=== PATIENT | female | born 1955 | race Caucasian/White ===

== ENCOUNTER → 2017-01-16 | Outpatient (CLI) | payer OTHER ==
[~2017-01-16] MED LIST: ATOR20TA PO; CINNAMON PO; CYAN1TAB29 PO; LACT1CAP37 PO; METO25TA91 PO; MULT-516 PO; NAPR500T3 PO; OXYC1TAB7 PO; TEMA15CA PO; TURMERIC PO
[2017-01-16 14:22] LABS: HEMATOCRIT 41.7 % (34.6-47.8); HEMOGLOBIN 14.2 g/dL (11.7-16.4); WHITE BLOOD COUNT 5.9 x10^3/uL (3.4-10)
[2017-01-16 15:20] LABS: HIV 1&2 ANTIBODY SCREEN Nonreactive (Nonreactive); HIV-1 p24 ANTIGEN Nonreactive (Nonreactive)
== END | disposition home or self-care (01) ==
LOC: STAR 13:23
PROVIDERS: ATTEND Orthopaedic Surgery
DX: Z01.818 Encounter for other preprocedural examination (principal); M19.011 Primary osteoarthritis, right shoulder
CPT/HCPCS: 36415; 81003; 85025; 86703; 87081; 87899; 93005; G0435

== ENCOUNTER 2017-01-22 09:39 | Inpatient (IN) | payer OTHER ==
[~2017-01-22] VITALS: Ht 165.1 cm; Wt 70.6 kg
[~2017-01-22 09:39] MED LIST changes: +BUPIVACAINE/PF 0.25% ONE; +DEXAMETHASONE 4 MG/ML, 1ML ONE; +FENTANYL PF 100 MCG/2ML ONE; +MIDAZOLAM 1 MG/ML, 2ML ONE; +ONDANSETRON 2MG/ML, 2ML ONE; +ROCURONIUM 10 MG/ML ONE; +SUCCINYLCHOLINE 20 MG/ML, 10ML ONE
[2017-01-22] MEDS ORDERED: LACTATED RINGERS 1,000 ML IV SCH (10:04)
[2017-01-22] MEDS ORDERED: VANCOMYCIN PMX 1GM/200ML 200 ML IV ONE (10:30)
[2017-01-22 10:31] VITALS: BP 128/84
[2017-01-22] MEDS ORDERED: TRANEXAMIC ACID 100 MG/ML, 10ML ONE (11:30)
[2017-01-22] MEDS ORDERED: KETOROLAC 60 MG/2 ML ONE (11:30)
[2017-01-22] MEDS ORDERED: morphine SULFATE/PF 1 MG/ML, 10ML ONE (11:31)
[2017-01-22] MEDS ORDERED: EPINEPHRINE 1 MG/ML, 1ML ONE (11:31)
[2017-01-22] MEDS ORDERED: ROPIvacaine/PF 0.2%, 20 ML ONE (11:31)
[2017-01-22] MEDS ORDERED: BACITRACIN 50,000 UNIT ONE (11:31)
[2017-01-22] MEDS ORDERED: PROPOFOL 10 MG/ML, 20ML ONE (11:57)
[2017-01-22] MEDS ORDERED: PHENYLEPHRINE 10 MG/ML ONE (11:57)
[2017-01-22] MEDS ORDERED: DEXAMETHASONE 4 MG/ML, 1ML ONE (11:57)
[2017-01-22] MEDS ORDERED: HYDROcodone/APAP 7.5-325MG/15ML UDC PO PRN (12:00)
[2017-01-22] MEDS ORDERED: MEPERIDINE/PF 25MG/0.5ML IVPush PRN (12:00)
[2017-01-22] MEDS ORDERED: ONDANSETRON 2MG/ML, 2ML IVPush PRN ×2 (12:00→15:00)
[2017-01-22] MEDS ORDERED: HYDROmorphone 1 MG/ML, 1ML IV PRN (12:00)
[2017-01-22] MEDS ORDERED: FENTANYL PF 100 MCG/2ML IV PRN (12:00)
[2017-01-22] MEDS ORDERED: OXYcodone 5 MG/5 ML ORAL.SOL UDC PO PRN (12:00)
[2017-01-22] MEDS ORDERED: ONDANSETRON 2MG/ML, 2ML ONE ×2 (13:45)
[2017-01-22] MEDS ORDERED: DIPHENHYDRAMINE 50 MG CAPSULE PO PRN (15:00)
[2017-01-22] MEDS ORDERED: LORazepam 2 MG/ML, 1ML IVPush PRN (15:00)
[2017-01-22] MEDS ORDERED: morphine SULFATE 10 MG/ML, 1ML IVPush PRN (15:00)
[2017-01-22] MEDS ORDERED: ZOLPIDEM 5MG TABLET PO PRN (15:00)
[2017-01-22] MEDS ORDERED: ACETAMINOPHEN 325 MG TABLET PO PRN (15:00)
[2017-01-22] MEDS ORDERED: TEMAZEPAM 15 MG CAPSULE PO PRN (16:30)
[2017-01-22] MEDS ORDERED: OXYcodone/APAP 5/325MG TABLET PO PRN (16:30)
[2017-01-22] MEDS ORDERED: METOPROLOL MC SCH (17:00)
[2017-01-22] MEDS: CEFAZOLIN PMX 1GM/50ML 50 ML IVPB SCH (18:47)
[2017-01-22] MEDS: D5%-0.45% NACL 1,000 ML IV SCH ×2 (19:25→19:48)
[2017-01-22 19:58] VITALS: BP 86/48
[2017-01-22] MEDS ORDERED: ATORVASTATIN 20 MG TABLET PO SCH (21:00)
[2017-01-22] MEDS: METOPROLOL SUCCINATE 25 MG TAB.ER.24H PO SCH (21:00)
[2017-01-22] MEDS: NAPROXEN 500 MG TABLET PO SCH (21:20)
[2017-01-22] MEDS: OXYcodone/APAP 7.5/325MG TABLET PO PRN (23:29)
[2017-01-22 23:43] VITALS: BP 93/48
[2017-01-23] MEDS: D5%-0.45% NACL 1,000 ML IV SCH ×3 (00:20→10:36)
[2017-01-23] MEDS: CEFAZOLIN PMX 1GM/50ML 50 ML IVPB SCH ×2 (02:38→10:36)
[2017-01-23 02:52] VITALS: BP 81/41
[2017-01-23] MEDS ORDERED: SODIUM CHLORIDE 0.9% 1,000ML IVBOLUS ONE (03:00)
[2017-01-23] MEDS: OXYcodone/APAP 7.5/325MG TABLET PO PRN (07:16)
[2017-01-23 07:20] VITALS: BP 86/56
[2017-01-23] MEDS ORDERED: LACTOBACILLUS CHEW TABLET PO SCH (09:00)
[2017-01-23] MEDS: METOPROLOL SUCCINATE 25 MG TAB.ER.24H PO SCH (09:00)
[2017-01-23] MEDS ORDERED: CYANOCOBALOMIN 100MCG TABLET PO SCH (09:00)
[2017-01-23] MEDS ORDERED: MULTIVITAMIN 1 TABLET PO SCH (09:00)
[2017-01-23] MEDS: NAPROXEN 500 MG TABLET PO SCH (09:14)
[2017-01-23] MEDS ORDERED: VANCOMYCIN PMX 1GM/200ML 200 ML IVPB ONE (10:30)
[2017-01-23] MEDS ORDERED: ASPIRIN 325 MG TABLET EC PO SCH (17:00)
[2017-01-23] MEDS ORDERED: DOCUSATE 100 MG CAPSULE PO SCH (21:00)
== END 2017-01-23 12:30 | disposition home or self-care (01) | DRG 483 ==
LOC: ORIP 09:39 → 4NOR 15:57 → DCLOUNGE 01-23 11:57
PROVIDERS: ADMIT Orthopaedic Surgery; ATTEND Orthopaedic Surgery
PROC: 0RRJ0JZ Replacement of Right Shoulder Joint with Synthetic Substitute, Open Approach (ICD-10-PCS; principal; 2017-01-22 11:30)
DX: M19.011 Primary osteoarthritis, right shoulder (principal); M75.100 Unspecified rotator cuff tear or rupture of unspecified shoulder, not specified as traumatic
CPT/HCPCS: 36415; 85018; C1713; C1776; J0171; J0690; J1100; J1885; J2250; J2274; J2405; J2704; J2795; J3010; J3370; J3490; J0330; J2370; J7030; J7120